=== PATIENT | female | born 1940 | race Caucasian/White ===

== ENCOUNTER → 2016-07-18 | Outpatient (CLI) | payer MEDICARE, BC ==
--- NOTE | 2016-07-18 12:51 | MM ---
Reason for exam: screening (asymptomatic). Last mammogram was performed 1 year and 1 month ago. History: Patient is postmenopausal. Family history of breast cancer in cousin and premenopausal breast cancer in cousin. Physical Findings: A clinical breast exam by your physician is recommended on an annual basis and results should be correlated with mammographic findings. MG Screening Mammo w CAD Bilateral CC and MLO view(s) were taken. Prior study comparison: June 22, 2015, bilateral MG screening mammo w CAD. May 12, 2014, bilateral MG screening mammo w CAD. The breast tissue is heterogeneously dense. This may lower the sensitivity of mammography. There is no discrete abnormality. ASSESSMENT: Negative, BI-RAD 1 RECOMMENDATION: Routine screening mammogram of both breasts in 1 year.
== END | disposition home or self-care (01) ==
LOC: RADMAMWWP 10:02
PROVIDERS: ATTEND Internal Medicine
DX: Z12.31 Encounter for screening mammogram for malignant neoplasm of breast (principal)

== ENCOUNTER → 2017-08-15 | Outpatient (CLI) | payer MEDICARE, BC ==
--- NOTE | 2017-08-16 11:41 | MM ---
Reason for exam: screening (asymptomatic). Last mammogram was performed 1 year and 1 month ago. History: Patient is postmenopausal. Family history of breast cancer in cousin and premenopausal breast cancer in cousin. Physical Findings: A clinical breast exam by your physician is recommended on an annual basis and results should be correlated with mammographic findings. MG Screening Mammo w CAD Bilateral CC and MLO view(s) were taken. Prior study comparison: July 18, 2016, bilateral MG screening mammo w CAD. June 22, 2015, bilateral MG screening mammo w CAD. The breast tissue is heterogeneously dense. This may lower the sensitivity of mammography. There is chronic nodularity bilaterally. There is no dominant lesion. No significant changes when compared with prior studies. ASSESSMENT: Benign, BI-RAD 2 RECOMMENDATION: Routine screening mammogram of both breasts in 1 year.
== END | disposition home or self-care (01) ==
LOC: RADMAMWWP 09:42
PROVIDERS: ATTEND Internal Medicine
DX: Z12.31 Encounter for screening mammogram for malignant neoplasm of breast (principal)
CPT/HCPCS: 77067

== ENCOUNTER → 2018-11-20 | Outpatient (CLI) | payer MEDICARE, OTHER ==
--- NOTE | 2018-11-21 09:49 | MM ---
Reason for exam: screening (asymptomatic). Last mammogram was performed 1 year and 3 months ago. History: Patient is postmenopausal. Family history of breast cancer in cousin and premenopausal breast cancer in cousin. Physical Findings: A clinical breast exam by your physician is recommended on an annual basis and results should be correlated with mammographic findings. MG Screening Mammo w CAD Bilateral CC and MLO view(s) were taken. Prior study comparison: August 15, 2017, bilateral MG screening mammo w CAD. July 18, 2016, bilateral MG screening mammo w CAD. The breast tissue is heterogeneously dense. This may lower the sensitivity of mammography. Stable benign calcifications. There is chronic nodularity bilaterally. There is no dominant lesion. No significant changes when compared with prior studies. ASSESSMENT: Benign, BI-RAD 2 RECOMMENDATION: Routine screening mammogram of both breasts in 1 year.
== END | disposition home or self-care (01) ==
LOC: RADMAMWWP 12:38
PROVIDERS: ATTEND Internal Medicine
DX: Z12.31 Encounter for screening mammogram for malignant neoplasm of breast (principal)
CPT/HCPCS: 77067

== ENCOUNTER → 2020-04-04 | Outpatient (CLI) | payer MEDICARE, OTHER ==
[2020-04-04 10:48] LABS: Basophils % (A) 0 %; Eosinophils # (A) 0.2 k/uL (0-0.7); Eosinophils % (A) 3 %; HCT 45.4 % (34.0-46.0); HGB 14.7 gm/dL (11.4-16.0); Lymphocytes # (A) 2.2 k/uL (1.0-4.8); Lymphocytes % (A) 29 %; MCH 31.7 pg (25.0-35.0); MCHC 32.4 g/dL (31.0-37.0); MCV 97.9 fL (80.0-100.0); Mean Platelet Volume 6.9; Monocytes # (A) 0.5 k/uL (0-1.0); Monocytes % (A) 7 %; Neutrophils # (A) 4.4 k/uL (1.3-7.7); Neutrophils % (A) 57 %; Platelet Count 330 k/uL (150-450); RBC 4.64 m/uL (3.80-5.40); RDW 12.6 % (11.5-15.5); WBC 7.6 k/uL (3.8-10.6)
[2020-04-04 10:57] LABS: Calcium 9.4 mg/dL (8.4-10.2); Potassium 4.9 mmol/L (3.5-5.1)
[2020-04-04 11:20] LABS: Appearance,Urine Clear (Clear); Bilirubin,Urine Negative (Negative); Blood,Urine Negative (Negative); Color,Urine Light Yellow; Glucose,Urine (UA) Negative (Negative); Ketones,Urine Negative (Negative); Leukocyte Esterase,Urine Negative (Negative); Nitrite,Urine Negative (Negative); Protein,Urine Negative (Negative); Specific Gravity,Urine 1.009 (1.001-1.035); Urobilinogen,Urine <2.0 mg/dL (<2.0)
[2020-04-04 11:55] LABS: INR 0.9 (<1.2); Prothrombin Time 9.6 sec (9.0-12.0)
== END | disposition home or self-care (01) ==
LOC: LABPAT 09:23
PROVIDERS: ATTEND Urology
DX: Z01.818 Encounter for other preprocedural examination (principal); Z79.899 Other long term (current) drug therapy; N39.3 Stress incontinence (female) (male); R58 Hemorrhage, not elsewhere classified; R31.29 Other microscopic hematuria
CPT/HCPCS: 36415; 80048; 81003; 85025; 85610; 86850; 86900; 86901; 87086; 93005

== ENCOUNTER 2020-04-11 07:59 | Day surgery (SDC) | payer MEDICARE, OTHER ==
--- NOTE | 2020-04-07 17:13 | HP ---
HISTORY AND PHYSICAL This is an 80-year-old female who presented with increasing pelvic pressure and bulge. She is uncomfortable with any physical activity including walking. She is not sexually active as she is a . She also experiences urinary leakage and has scheduled with Dr. Ratliff for bladder sling procedure. She denies postmenopausal bleeding. PAST SURGICAL HISTORY: Negative. CURRENT MEDICATIONS: Baby aspirin daily. Centrum Silver daily. Latanoprost 0.005% ophthalmic eyedrops one into each eye each evening. Levothyroxine 50 mcg daily. Vitamin D 2000 units daily. PAST MEDICAL HISTORY: Significant for hypothyroidism. FAMILY HISTORY: Unremarkable. ALLERGIES: None known. REPRODUCTIVE HISTORY: Significant for normal spontaneous vaginal delivery x2. SOCIAL HISTORY: Patient drinks 4 cups of coffee daily. She denies alcohol or drug use. She is retired and as mentioned, is a . PHYSICAL EXAM: Patient is 5 foot 5 inches, 152 pounds, blood pressure is 150/82, pulse 75, BMI 25, 96% O2 saturation. HEENT: Exam reveals no thyromegaly, no obvious cervical lymphadenopathy. Good dentition. CHEST: Clear to auscultation in all nuñez anteriorly and posteriorly. CARDIAC: Exam reveals regular rate and rhythm with no murmur, click, or rub. Breasts are bilaterally atrophic, no discharge, no deformities. No skin changes. No nipple deviation or retraction and no palpable lesions or masses. ABDOMEN: Soft and nontender, no rigidity or guarding. Normal bowel sounds. No hepatosplenomegaly. No obvious herniorrhaphy. On external genitalia exam, there is no discharge and no tenderness. There is a grade 4 cystocele present along with a grade 3 uterine prolapse. No obvious rectocele is appreciated. Adnexa are small, mobile, nontender and smooth. Uterus is small, mobile, and nontender, midline. Rectal exam reveals good sphincter tone, no hemorrhoids, no rectal masses, FIT negative stool. Psychiatric exam reveals patient to be alert and oriented x3 with appropriate affect. IMPRESSION: Uterine prolapse and cystocele, along with genuine urinary stress incontinence. PLAN: We will proceed with vaginal hysterectomy, anterior colporrhaphy, and sling procedure per Dr. Ratliff. She is declining option of pessary use. The ACOG pamphlet on pelvic organ prolapse was given and thoroughly explained. All questions answered, including the risks of surgery, aspiration, nerve damage, bladder, urethral or blood vessel damage. MMODL / IJN: [id number] /
[2020-04-08 08:30] VITALS: BMI 25.1
[~2020-04-11 07:59] MED LIST: DEXAMETHASONE SOD PHOSPHATE 4 MG/ML 1 ML VIAL IV ONE; HYDROmorphone 0.5 MG/0.5 ML SYRINGE IVP PRN; LIDOCAINE 1% (10MG/ML) FOR IV START INTRADERMA PRN; ONDANSETRON 4 MG/2 ML VIAL IVP ONE
[2020-04-11] MEDS: LACTATED RINGERS 1,000 ML IV SCH (08:42)
[2020-04-11] MEDS ORDERED: MIDAZOLAM 2 MG/2 ML VIAL IVP ONE (09:03)
[2020-04-11] MEDS ORDERED: NEOSTIGMINE 1 MG/ML 10 ML VIAL ONE (09:15)
[2020-04-11] MEDS ORDERED: HYDROmorphone (PF) 1 MG/ML ONE (09:15)
[2020-04-11] MEDS ORDERED: GLYCOPYRROLATE 0.2 MG/ML 2 ML VIAL ONE (09:15)
[2020-04-11] MEDS ORDERED: LIDOCAINE 1% INJ 10MG/ML (20 ML MDV) ONE (09:15)
[2020-04-11] MEDS ORDERED: PROPOFOL 10 MG/ML 20 ML VIAL IV ONE (09:15)
[2020-04-11] MEDS ORDERED: fentaNYL (PF) 50 MCG/ML 2 ML AMP ONE (09:15)
[2020-04-11] MEDS ORDERED: ROCURONIUM 10 MG/ML (10 ML VIAL) IV ONE (09:15)
[2020-04-11] MEDS ORDERED: SUCCINYLCHOLINE CHLORIDE 100 MG/5 ML SYR IV ONE (09:15)
[2020-04-11] MEDS ORDERED: VASOPRESSIN 20 UNIT/ML 1 ML VIAL SQ ONE (09:50)
[2020-04-11] MEDS ORDERED: BACITRACIN ZINC 500 UNIT/GM OINT 28.4 GM TUBE TOPICAL ONE ×3 (09:53→10:39)
[2020-04-11] MEDS ORDERED: LIDOCAINE 1%-EPI 1:100,000 20 ML VIAL SUBMUCOSAL ONE (09:54)
[2020-04-11] MEDS ORDERED: GENTAMICIN 80 MG in SODIUM CHLORIDE 0.9% 500 ML 500 ML IRRIGATION ONE ×4 (09:55)
--- NOTE | 2020-04-11 10:50 | P.OP ---
Date of Procedure: 04/11/20 Preoperative Diagnosis: Stress urinary incontinence Postoperative Diagnosis: Same Procedure(s) Performed: Trans-obturator sling, cystoscopy Implants: Obturator mesh sling Anesthesia: ZEYADA Surgeon: Leobardo Ratliff Estimated Blood Loss (ml): 5 Pathology: none sent Condition: stable Disposition: PACU Indications for Procedure: This is an 80-year-old female with history of pelvic organ prolapse, She has also evidence of stress urinary incontinence. She is symptomatic from her prolapse, stress urinary incontinence. Discussed with her the option of doing a prolapse repair and doing a sling at the same time. Discussed with her the risk of the procedure which includes but not limited to bleeding, infection, injury to the bladder, injury to the urethra. Also discussed with her that we will be using mesh for the sling, discussed the risk of mesh erosion through the urethra, the bladder, the vagina. Also discussed with her that she might still have some component of incontinence after sling placement. She understood all the risk and agreed to proceed Description of Procedure: The patient was taken to the operating room and placed in the dorsal lithotomy position. The anterior dissection was performed by Dr Samano. The scalpel was used to make bilateral groin incisions at the level of the clitoris. Subcutaneous tissues were spread with a hemostat. Each of the helical needles were passed through the respective groin incision, and turned such that the needle tip wrapped around the pubis. The needle tips were guided digitally into the vaginal incision. The Obtryx graft, which had been previously soaked in antibiotic solution, was secured to the needle tips in the standard fashion. The needles were then withdrawn, and the position of the graft was adjusted such that it overlie the mid urethra, as desired. With a hemostat placed between the graft and the urethra to prevent tension of the graft over the urethra, the plastic sheath was removed from the ends of the graft. The ends of the graft w ere cut beneath the skin incisions, and these incisions were closed using 4-0 Vicryl suture in a subcuticular fashion. A Cystoscopy was performed. The 30 lens was used to introduce the 17-Stateless Storz cystoscopic sheath through the urethra and into the bladder under direct vision. The urethra and bladder were unremarkable. There was no evidence of perforation.. No tumors or foreign bodies were seen. The cystoscope was removed, and the Rosado catheter was replaced into the bladder. At this time Dr Samano continued with her portion of surgery.
[2020-04-11] MEDS ORDERED: ONDANSETRON 4 MG/2 ML VIAL IVP PRN ×2 (10:58→18:54)
[2020-04-11] MEDS ORDERED: IBUPROFEN 600 MG TAB PO PRN (10:58)
[2020-04-11] MEDS ORDERED: KETOROLAC 15 MG/ML 1 ML VIAL IVP PRN (10:58)
[2020-04-11] MEDS ORDERED: SIMETHICONE 80 MG CHEWABLE PO PRN (10:58)
--- NOTE | 2020-04-11 10:58 | P.OP ---
Date of Procedure: 04/11/20 Preoperative Diagnosis: Symptomatic uterine prolapse, grade 4 cystocele, genuine stress urinary incontinence. Postoperative Diagnosis: Same, atrophic ovaries high in the pelvis. Procedure(s) Performed: Vaginal hysterectomy, anterior colporrhaphy. Anesthesia: ZEYADA Surgeon: Ro Samano Fishing Tackle Repairer #1: Sally Mondragon Estimated Blood Loss (ml): 25 IV fluids (ml): 500 Urine output (ml): 200 Pathology: other (Cervix and uterus) Condition: stable Disposition: PACU Operative Findings: Rectocele, asymptomatic. Normal-appearing ovaries bilaterally. Description of Procedure: Patient is brought to the operating room after a spinal with Duramorph is placed. She is placed in the dorsal lithotomy position. The cervix, vagina, perineal body and lower abdominal landa are all prepped and draped in the usual sterile fashion. Antibiotics are given. The appropriate timeout is performed to assure proper patient and procedural identification. Weighted speculum was placed into the vagina. Bladder is drained with a red Jackson catheter, approximately 200 mL of clear yellow urine. Cervix is grasped with a double- tooth tenaculum. Dilute Pitressin solution is used to inject the mucosa circumferentially around the cervix. A [place] blade scalpel is used to incise the tissue circumferentially, with a V positioning at 6:00. Sponge rolled finger is then used to sweep the mucosa from the underlying fascial plane. Peritoneum is entered at 6:00 with a Metzenbaum scissor, suture tied with 2-0 Vicryl and held with a hemostat. The large billed speculum is then placed into the peritoneal cavity. Care is taken to keep the mucosa swept well from the bladder and ureters. Aicha clamps are used across the uterosacral cardinal ligament complex these bilaterally. These are clamped cut and suture ligated, held laterally with hemostats. Uterine vasculature is next identified, clamped cut and suture ligated. 2 additional pedicles are taken superior to the vessels. Anterior per itoneum is entered at 12:00 and the uterus is "walked out" posteriorly. Aicha clamps are used across the final pedicles, the cervix and uterus are removed and sent to pathology. The pedicles are tied with 0 Vicryl in a Gallo stitch, flashed, and retied for excellent hemostasis. Sponge stick is then used and the ovaries are inspected, atrophic, high in the pelvis and left in situ per the patient's wishes. The speculum is then changed to the shallow billed speculum. The 2-0 Vicryl stitch is brought around circumferentially to close the peritoneal cavity. The uterosacral cardinal ligaments are brought across to incorporate opposite ligament as well as vaginal mucosa. 2 additional [id number] sutures are placed inferior to this to close the vaginal cuff. The anterior portion is held with Allis clamps and the anterior repair is started. The mucosa is injected in the midline with the same dilute Pitressin solution. Metzenbaum scissors are used to undermine the mucosa and the incision is carried superiorly to approximate 1.5 cm inferior to the urethra. The edges are held with Allis clamps and the mucosa is dissected from underneath the fascial plane. Dr. Britt now joins the case and performed his transurethral sling, please see separate dictation for details. After the sling is completed and the cystocele documents no damage, 2-0 Vicryl sutures are used in an interrupted portion to bring the fascial edges together thereby completely reducing the cystocele. Metzenbaum scissors are used to trim the redundant mucosa. 2-0 Vicryl is used to close the mucosa now in a running locking stitch. Approximation is excellent. The vagina is packed with a 1 inch iodophor gauze with basic tracing. Rosado is noted to be draining clear urine. All sponge needle and enhancement counts are correct at the end of the procedure. Patient is brought back to the recovery room in excellent condition with a blood pressure 120/69, pulse 61, 98% O2 saturation.
[2020-04-11] MEDS ORDERED: LACTATED RINGERS 1,000 ML IV ONE (11:17)
[2020-04-11] MEDS ORDERED: NALOXONE 0.4 MG/ML 1 ML VIAL IV PRN (12:02)
[2020-04-11] MEDS ORDERED: MORPHINE SULFATE 2 MG/ML SYRINGE IVP PRN ×2 (12:02→19:02)
--- NOTE | 2020-04-11 12:04 | P.ANPRN ---
Procedure Note - Anesthesia - Epidural/Spinal Spinal Time Out Performed: Yes Date of Procedure: 04/11/20 Procedure Start Time: :02 Procedure Stop Time: :17 Location of Patient: PreOp Indication: Acute Post-Operative Pain Sedation Type: Sedate with meaningful contact maintained Preparation: Sterile Prep Position: Sitting Needle Guage: 25 Injectate: Other (Duramorph 200mcg) Blood Aspirated: No Pain Paresthesia on Injection Noted: No Events: Uneventful and Well Tolerated
[2020-04-11] MEDS: diphenhydrAMINE 50 MG/ML 1 ML VIAL IVP PRN (19:49)
[2020-04-12] MEDS: LACTATED RINGERS 1,000 ML IV SCH (02:03)
[2020-04-12] MEDS: diphenhydrAMINE 50 MG/ML 1 ML VIAL IVP PRN (02:17)
[2020-04-12] MEDS ORDERED: LEVOTHYROXINE 50 MCG TAB PO SCH (06:30)
--- NOTE | 2020-04-12 06:35 | P.PN ---
Progress Note - Text Progress Note Date: 04/12/20 Postoperative day 1 with intrathecal Duramorph for postoperative analgesia.The patient is doing well, there is mild generalized skin itching. There are no other anesthesia related complications. The patient denies any paresthesia or weakness in the lower extremities. Further management as per the patient primary team.
--- NOTE | 2020-04-12 07:41 | P.DS ---
Providers Date of admission: 04/11/20 Expected date of discharge: 04/12/20 Attending physician: Ro Samano [facility] Course: This is an 80-year-old female who presented with increasingly symptomatic va ginal bulge, grade 4 cystocele, genuine stress urinary incontinence, and uterine prolapse. After thorough discussion, decision was made to proceed with surgical correction. Please see dictated history and physical for details. Yesterday under my care she underwent a vaginal hysterectomy, cystocele repair, and had a sling performed per Dr. Red. She did well intraoperatively, the ovaries appeared normal and were left in situ. Vagina was packed with iodoform gauze, Rosado catheter placed. Please see dictated operative note for details. This morning the Rosaod catheter has been removed, and the vaginal packing has been removed as well. Patient is doing well, passing flatus, having no pain. No vaginal drainage. Her diet has been advanced. She will shower. She will use Motrin, Advil or Aleve as needed for pain. My plan is for discharge home later today pending successful post void residuals. I have reminded her no intercourse, tampons or douching. No heavy lifting greater than a gallon of milk. No driving for 2 weeks. She will call the office with any foul smelling or bloody vaginal discharge, with any pain not alleviated by [id number] products, with any difficulties urinating, or indeed with any problems questions or concerns. She'll follow-up with me in the office in 2 weeks. Assessment: Doing well postoperative day #1 Patient Condition at Discharge: Good Plan - Discharge Summary New Discharge Prescriptions: No Action Cholecalciferol [Vitamin D3 (25 Mcg = 1000 Iu)] 2,000 unit PO DAILY Aspirin [Adult Low Dose Aspirin EC] 81 mg PO DAILY Levothyroxine Sodium [Synthroid] 50 mcg PO DAILY Latanoprost/Pf [Latanoprost 0.005% Eye Drop] 1 drop RIGHT EYE HS Multivit-Min/FA/Lycopen/Lutein [Centrum Silver Tablet] 1 each PO DAILY Discharge Medication List Aspirin [Adult Low Dose Aspirin EC] 81 mg PO DAILY 04/08/20 [History] Cholecalciferol [Vitamin D3 (25 Mcg = 1000 Iu)] 2,000 unit PO DAILY 04/08/20 [History] Latanoprost/Pf [Latanoprost 0.005% Eye Drop] 1 drop RIGHT EYE HS 04/08/20 [History] Levothyroxine Sodium [Synthroid] 50 mcg PO DAILY 04/08/20 [History] Multivit-Min/FA/Lycopen/Lutein [Centrum Silver Tablet] 1 each PO DAILY 04/08/20 [History] Follow up Appointment(s)/Referral(s): Ro Samano MD [STAFF PHYSICIAN] - 2 Weeks Discharge Disposition: HOME SELF-CARE
[2020-04-12 08:48] VITALS: BP 108/62; PULSE 80; TEMP 98.7
[2020-04-12] MEDS ORDERED: ACETAMINOPHEN TAB 325 MG TAB PO PRN (10:59)
[2020-04-12 11:25] VITALS: RESP 16
--- NOTE | 2020-04-12 21:28 | P.PN ---
Progress Note - Text Progress Note Date: 04/12/20 POD #1 S/P transobturator sling placement No acute overnight event, pain controlled, tolerating a diet. Rosado removed and has been voided 400 mL with PVR 171 -ok for discharge from urology standpoint, can obtain an additional PVR, if less than 200 mL she is ok for discharge from urology standpoint
== END 2020-04-12 12:13 | disposition home or self-care (01) ==
LOC: OR 07:59 → 6PED 10:39 → OR 04-12 12:13
PROVIDERS: ATTEND Obstetrics & Gynecology
DX: N81.4 Uterovaginal prolapse, unspecified (principal); D25.1 Intramural leiomyoma of uterus; N39.3 Stress incontinence (female) (male); N83.312 Acquired atrophy of left ovary; N83.311 Acquired atrophy of right ovary; E78.5 Hyperlipidemia, unspecified; E03.9 Hypothyroidism, unspecified; K21.9 Gastro-esophageal reflux disease without esophagitis; Z79.890 Hormone replacement therapy; Z79.82 Long term (current) use of aspirin; Z79.899 Other long term (current) drug therapy
CPT/HCPCS: 88307; 58260; 57240; 57288; C1771; J2250; J1200 ×2; J1580; J1100; J2710; J0690; J2405; J2001; J3010; J1170 ×2; J0330; J2704; 86850; 86900; 86901

== ENCOUNTER 2020-11-05 20:07 | Emergency (ER) | payer MEDICARE, OTHER ==
[2020-11-05 20:14] VITALS: RESP 18
--- NOTE | 2020-11-05 20:24 | ED ---
General Adult HPI - General Chief complaint: Abdominal Pain Stated complaint: Abd Pain Time Seen by Provider: 11/05/20 20:21 Source: patient Mode of arrival: wheelchair Limitations: no limitations - History of Present Illness Initial comments: Patient presents to the ED with her niece for evaluation. Patient states that she has had intermittent epigastric pain for the past couple of days, which has become constant and more severe since this morning. Patient also admits to feeling somewhat nauseated. Patient denies trauma or injury, fever or chills, headache, chest pain or pressure, neck/arm/jaw/back pain, pleuritic pain, dyspnea, cough or cold symptoms, palpitations, dizziness, vomiting, diarrhea or constipation, bloody or melanotic stool, dysuria/hematuria/urinary frequency/urinary symptoms, leg or calf swelling or pain, or any other symptoms or complaints. Patient states that her pain is currently 9/10 in severity. - Related Data Home Medications Medication Instructions Recorded Confirmed Cholecalciferol [Vitamin D3 (25 1,000 unit PO DAILY 04/08/20 11/05/20 Mcg = 1000 Iu)] Latanoprost/Pf [Latanoprost 0.005% 1 drop RIGHT EYE HS 04/08/20 11/05/20 Eye Drop] Levothyroxine Sodium [Synthroid] 50 mcg PO DAILY 04/08/20 11/05/20 Multivit-Min/FA/Lycopen/Lutein 1 tab PO DAILY 04/08/20 11/05/20 [Centrum Silver Tablet] Allergies Allergy/AdvReac Type Severity Reaction Status Date / Time No Known Allergies Allergy Verified 11/05/20 20:58 Review of Systems ROS Statement: Those systems with pertinent positive or pertinent negative responses have been documented in the HPI. ROS Other: All systems not noted in ROS Statement are negative. Past Medical History Past Medical History: Eye Disorder, Thyroid Disorder History of Any Multi-Drug Resistant Organisms: None Reported Past Surgical History: Bladder Surgery, Hysterectomy Past Psychological History: No Psychological Hx Reported Smoking Status: Never smoker Past Alcohol Use History: None Reported Past Drug Use History: None Reported General Exam Limitations: no limitations General appearance: alert, in no apparent distress Head exam: Present: atraumatic, normocephalic Eye exam: Present: normal appearance, EOMI ENT exam: Present: mucous membranes moist Neck exam: Present: other (Trachea is in midline) Respiratory exam: Present: normal lung sounds bilaterally. Absent: respiratory distress, wheezes, rales, rhonchi, stridor Cardiovascular Exam: Present: regular rate, normal rhythm, normal heart sounds, other (Normal radial pulses bilaterally) GI/Abdominal exam: Present: soft, normal bowel sounds, other (Moderate epigastric and right upper quadrant abdominal tenderness). Absent: distended, guarding, rebound Extremities exam: Absent: tenderness, pedal edema, calf tenderness Back exam: Absent: CVA tenderness (R), CVA tenderness (L) Neurological exam: Present: alert, oriented X3. Absent: motor sensory deficit Psychiatric exam: Present: normal affect, normal mood Skin exam: Present: warm, dry, intact, normal color Course Vital Signs 11/05/20 11/05/20 20:10 21:51 Temperature 98 F Pulse Rate 80 78 Respiratory 18 18 Rate Blood Pressure 158/78 143/70 O2 Sat by Pulse 95 98 Oximetry - Reevaluation(s) Reevaluation #1: 11/05/20 21:59 Case, H&P and test results were discussed with Dr. Calloway (general surgery). Patient states that the patient should be transferred to another facility given we do not have any GI coverage this weekend, as she will likely need an ERCP. She has no further recommendations at this time. 11/05/20 22:08 Patient states her pain/symptoms have improved with ED management, but she continues to have pain. Patient's abdomen remains soft and without any surgical signs on examination. Patient and niece are aware the patient's test results and my discussion with Dr. Calloway as above. Patient agrees with ambulance transfer to [facility] at this time. 11/05/20 22:11 Case, H&P, test results, ED management and my discussion with Dr. Calloway as above were discussed with Dr. Cho (ED physician at [facility]). He accepts ambulance transfer to the [facility] ED he has no further recommendations at this time. EKG Findings - EKG Comments: EKG Findings:: Normal sinus rhythm, ventricular rate of 75 bpm, normal [place] and QRS intervals, normal QT interval, normal axis, no ST or T-wave abnormality Medical Decision Making - Medical Decision Making Given the patient's lab and gallbladder ultrasound findings, I suspect that the patient's symptoms are likely secondary to a distal obstructing gallstone. Patient is afebrile and without leukocytosis. Patient has no evidence of gallbladder wall thickening or pericholecystic fluid on ultrasound. Patient has been treated with IV fluids, IV pain medication and IV Zosyn in the ED. There is no GI coverage in our hospital this weekend, so patient will be transferred to the [facility] ED for admission and GI consultation. - Lab Data Result diagrams: 11/05/20 20:40 11/05/20 20:40 Lab Results 11/05/20 11/05/20 11/05/20 Range/Units 20:40 20:40 20:40 WBC 10.4 (3.8-10.6) k/uL RBC 4.43 (3.80-5.40) m/uL Hgb 14.1 (11.4-16.0) gm/dL Hct 42.3 (34.0-46.0) % MCV 95.7 (80.0-100.0) fL MCH 31.8 (25.0-35.0) pg MCHC 33.2 (31.0-37.0) g/dL RDW 12.8 (11.5-15.5) % Plt Count 254 (150-450) k/uL MPV 7.3 Neutrophils % 72 % Lymphocytes % 13 % Monocytes % 9 % Eosinophils % 2 % Basophils % 0 % Neutrophils # 7.5 (1.3-7.7) k/uL Lymphocytes # 1.4 (1.0-4.8) k/uL Monocytes # 0.9 (0-1.0) k/uL Eosinophils # 0.2 (0-0.7) k/uL Basophils # 0.1 (0-0.2) k/uL PT (9.0-12.0) sec INR (<1.2) APTT (22.0-30.0) sec Sodium 137 (137-145) mmol/L Potassium 4.0 (3.5-5.1) mmol/L Chloride 104 (98-107) mmol/L Carbon Dioxide 25 (22-30) mmol/L Anion Gap 8 mmol/L BUN 21 H (7-17) mg/dL Creatinine 0.78 (0.52-1.04) mg/dL Est GFR (CKD-EPI)AfAm 83 (>60 ml/min/1.73 sqM) Est GFR (CKD-EPI)NonAf 72 (>60 ml/min/1.73 sqM) Glucose 113 H (74-99) mg/dL Plasma Lactic Acid Juaquin 0.9 (0.7-2.0) mmol/L Calcium 9.3 (8.4-10.2) mg/dL Total Bilirubin 4.2 H (0.2-1.3) mg/dL AST 994 H (14-36) U/L ALT 918 H (4-34) U/L Alkaline Phosphatase 219 H (38-126) U/L Troponin I (0.000-0.034) ng/mL Total Protein 7.0 (6.3-8.2) g/dL Albumin 3.8 (3.5-5.0) g/dL Amylase 3328 H* (30-110) U/L Lipase >39776 H (23-300) U/L 11/05/20 11/05/20 Range/Units 20:40 20:40 WBC (3.8-10.6) k/uL RBC (3.80-5.40) m/uL Hgb (11.4-16.0) gm/dL Hct (34.0-46.0) % MCV (80.0-100.0) fL MCH (25.0-35.0) pg MCHC (31.0-37.0) g/dL RDW (11.5-15.5) % Plt Count (150-450) k/uL MPV Neutrophils % % Lymphocytes % % Monocytes % % Eosinophils % % Basophils % % Neutrophils # (1.3-7.7) k/uL Lymphocytes # (1.0-4.8) k/uL Monocytes # (0-1.0) k/uL Eosinophils # (0-0.7) k/uL Basophils # (0-0.2) k/uL PT 10.7 (9.0-12.0) sec INR 1.0 (<1.2) APTT 22.1 (22.0-30.0) sec Sodium (137-145) mmol/L Potassium (3.5-5.1) mmol/L Chloride (98-107) mmol/L Carbon Dioxide (22-30) mmol/L Anion Gap mmol/L BUN (7-17) mg/dL Creatinine (0.52-1.04) mg/dL Est GFR (CKD-EPI)AfAm (>60 ml/min/1.73 sqM) Est GFR (CKD-EPI)NonAf (>60 ml/min/1.73 sqM) Glucose (74-99) mg/dL Plasma Lactic Acid Juaquin (0.7-2.0) mmol/L Calcium (8.4-10.2) mg/dL Total Bilirubin (0.2-1.3) mg/dL AST (14-36) U/L ALT (4-34) U/L Alkaline Phosphatase (38-126) U/L Troponin I <0.012 (0.000-0.034) ng/mL Total Protein (6.3-8.2) g/dL Albumin (3.5-5.0) g/dL Amylase (30-110) U/L Lipase (23-300) U/L - Radiology Data Radiology results: report reviewed (Gallbladder ultrasound: Numerous gallstones, there is some tenderness over the gallbladder, large common bile duct consistent with gallbladder dysfunction) Disposition Clinical Impression: Abdominal pain, Cholelithiasis, Pancreatitis, Transaminitis Narrative: Suspected choledocholithiasis Disposition: OTHER INSTITUTION NOT DEFINED Condition: Stable Is patient prescribed a controlled substance at d/c from ED?: No Referrals: Katiuska Parker MD [Primary Care Provider] - 1-2 days Time of Disposition: 22:17 - Out of Hospital Transfer - Req. Specs Out of Hospital Transfer - Requested Specifics: Other Emergency Center ([facility])
[2020-11-05] MEDS ORDERED: ONDANSETRON 4 MG/2 ML VIAL IVP STA (20:29)
[2020-11-05] MEDS ORDERED: SODIUM CHLORIDE 0.9% 500 ML 500 ML IV STA (20:29)
[2020-11-05] MEDS ORDERED: MORPHINE SULFATE 4 MG/ML SYRINGE IV STA (20:29)
[2020-11-05 21:10] LABS: Basophils # (A) 0.1 k/uL (0-0.2); Basophils % (A) 0 %; Eosinophils # (A) 0.2 k/uL (0-0.7); Eosinophils % (A) 2 %; HCT 42.3 % (34.0-46.0); HGB 14.1 gm/dL (11.4-16.0); Lymphocytes # (A) 1.4 k/uL (1.0-4.8); Lymphocytes % (A) 13 %; MCH 31.8 pg (25.0-35.0); MCHC 33.2 g/dL (31.0-37.0); MCV 95.7 fL (80.0-100.0); Mean Platelet Volume 7.3; Monocytes # (A) 0.9 k/uL (0-1.0); Monocytes % (A) 9 %; Neutrophils # (A) 7.5 k/uL (1.3-7.7); Neutrophils % (A) 72 %; Platelet Count 254 k/uL (150-450); RBC 4.43 m/uL (3.80-5.40); RDW 12.8 % (11.5-15.5); WBC 10.4 k/uL (3.8-10.6)
[2020-11-05 21:16] LABS: African American GFR (CKD) 83 (>60 ml/min/1.73 sqM); Albumin 3.8 g/dL (3.5-5.0); Alkaline Phosphatase 219 U/L (38-126); Anion Gap 8 mmol/L; Blood Urea Nitrogen 21 mg/dL (7-17); Calcium 9.3 mg/dL (8.4-10.2); Carbon Dioxide 25 mmol/L (22-30); Chloride 104 mmol/L (98-107); Glucose 113 mg/dL (74-99); Non-African American GFR(CKD) 72 (>60 ml/min/1.73 sqM); Sodium 137 mmol/L (137-145); Total Bilirubin 4.2 mg/dL (0.2-1.3)
[2020-11-05 21:21] LABS: Partial Thromboplastin Time 22.1 sec (22.0-30.0); Prothrombin Time 10.7 sec (9.0-12.0)
--- NOTE | 2020-11-05 21:29 | US ---
EXAMINATION TYPE: US gallbladder DATE OF EXAM: 11/05/2020 COMPARISON: NONE CLINICAL HISTORY: Epigastric abdominal pain. Epigastric pain EXAM MEASUREMENTS: Liver Length: 13.4 cm Gallbladder Wall: 0.3 cm CBD: 0.8 cm Right Kidney: 10.4 x 4.4 x 4.0 cm Pancreas: 4mm pancreatic duct visualized Liver: Visualized portions appeared wnl Gallbladder: Multiple, mobile gallstones, wall thickness upper limits of normal Evidence for sonographic Morales's sign: Yes CBD: wnl Right Kidney: Cyst upper pole= 0.8 cm IMPRESSION: Numerous gallstones. There is some tenderness over the gallbladder. Large common bile bernadette t consistent with gallbladder dysfunction.
[2020-11-05 21:49] LABS: AST 994 U/L (14-36)
[2020-11-05 21:50] LABS: ALT 918 U/L (4-34)
[2020-11-05 21:51] LABS: Amylase 3328 U/L (30-110)
[2020-11-05] MEDS ORDERED: PIPERACILLIN-TAZOBACTAM 3.375 GM in SODIUM CHLORIDE 0.9% 100 ML IVPB STA (21:59)
[2020-11-05 22:07] LABS: Lipase >20000 U/L (23-300)
[2020-11-05 22:09] LABS: Appearance,Urine Cloudy (Clear); Bacteria,Urine Rare /hpf; Bilirubin,Urine 2+ (Negative); Blood,Urine Moderate (Negative); Color,Urine Yellow; Glucose,Urine (UA) Negative (Negative); Ketones,Urine 1+ (Negative); Leukocyte Esterase,Urine Large (Negative); Mucus,Urine Rare /hpf; Nitrite,Urine Negative (Negative); PH, Urine 5.5 (5.0-8.0); Protein,Urine Trace (Negative); RBC,Urine 9 /hpf (0-5); Specific Gravity,Urine 1.017 (1.001-1.035); Squamous Epithelial Cell,Urine 4 /hpf (0-4); Urobilinogen,Urine <2.0 mg/dL (<2.0); WBC,Urine 54 /hpf (0-5)
[2020-11-05] MEDS ORDERED: HYDROmorphone 1 MG/ML 1 ML SYRINGE IVP STA (22:11)
[2020-11-05 23:02] VITALS: BP 142/72; PULSE 76; TEMP 98
== END 2020-11-05 23:01 | disposition other institution (70) ==
LOC: EC 20:07
DX: K80.20 Calculus of gallbladder without cholecystitis without obstruction (principal); K85.90 Acute pancreatitis without necrosis or infection, unspecified; R74.01 Elevation of levels of liver transaminase levels
CPT/HCPCS: 36415; 93005; 80053; 82150; 83605; 83690; 84484; 85025; 85610; 85730; 81001; 87086; 76705; 99285; 96374; 96375 ×2; 96361; J2543; J2270; J2405; J1170

== ENCOUNTER → 2020-11-15 | Outpatient (CLI) | payer MEDICARE, OTHER ==
--- NOTE | 2020-11-15 15:02 | US ---
EXAMINATION TYPE: US venous doppler duplex LE LT DATE OF EXAM: 11/15/2020 2:39 PM COMPARISON: NONE CLINICAL HISTORY: R79.1 ELEV D DIMER. Patient complains of bilateral feet swelling following GB surge ry last week. SIDE PERFORMED: Left TECHNIQUE: The lower extremity deep venous system is examined utilizing real time linear array sonog lucas with graded compression, doppler sonography and color-flow sonography. VESSELS IMAGED: Common Femoral Vein Deep Femoral Vein Greater Saphenous Vein * Femoral Vein Popliteal Vein (* superficial vessels) Left Leg: Negative for DVT IMPRESSION: No definite sonographic evidence for deep vein thrombosis of the left lower extremity.
== END | disposition home or self-care (01) ==
LOC: RADUSWWP 14:09
PROVIDERS: ATTEND Family Medicine
DX: R79.1 Abnormal coagulation profile (principal); R22.43 Localized swelling, mass and lump, lower limb, bilateral

== ENCOUNTER → 2020-11-22 | Outpatient (CLI) | payer MEDICARE, OTHER ==
[2020-11-22 16:03] LABS: Albumin 4.2 g/dL (3.80-4.90); Albumin/Globulin Ratio 1.31 (1.60-3.17); Bilirubin, Conjugated 0.3 mg/dL (0.20-0.40); Bilirubin,Unconjugated 0.4 mg/dL; Globulin 3.2 g/dL (1.6-3.3); Total Bilirubin 0.7 mg/dL (0.2-1.2); Total Protein 7.4 g/dL (6.2-8.2)
== END | disposition home or self-care (01) ==
LOC: LABWHC1 08:12
PROVIDERS: ATTEND Surgery
DX: R10.84 Generalized abdominal pain (principal)
CPT/HCPCS: 36415; 80076; 82150; 83690

== ENCOUNTER → 2021-06-27 | Outpatient (CLI) | payer MEDICARE, OTHER ==
[2021-06-27 15:40] LABS: Total Bilirubin 0.5 mg/dL (0.30-1.20)
== END | disposition home or self-care (01) ==
LOC: LABWHC1 07:42
PROVIDERS: ATTEND Internal Medicine Gastroenterology
DX: R74.01 Elevation of levels of liver transaminase levels (principal)
CPT/HCPCS: 36415; 82150; 82247; 83690; 84075; 84450; 84460

== ENCOUNTER → 2021-09-15 | Outpatient (CLI) | payer MEDICARE, OTHER ==
--- NOTE | 2021-09-15 16:52 | BD ---
EXAMINATION TYPE: Axial Bone Density DATE OF EXAM: 09/15/2021 COMPARISON: NONE CLINICAL HISTORY: 81 year old Female. ICD-10 CODE: M85.8 Osteopenia Height: 64.5 Weight: 140.4 FRAX RISK QUESTIONS: Alcohol (3 or more units per day): no Family History (Parent hip fracture): no Glucocorticoids (More than 3mos): no (Ex: prednisone, prednisolone, methylprednisolone, dexamethasone, and hydrocortisone). History of Fracture in Adulthood: no Secondary Osteoporosis: 1. Type 1 Diabetes: no 2. Hyperthyroidism: no 3. Menopause before 45: no 4. Malnutrition: no 5. Chronic liver disease: no Rheumatoid Arthritis: no Current Tobacco Use: no RISK FACTORS HISTORY OF: Surgery to Spine/Hip(right/left)/Wrist (right/left): no Family History of Osteoporosis: no Active: yes Diet low in dairy products/other sources of calcium: no Postmenopausal woman: yes Lost more than 2 inches in height since high school: no MEDICATIONS: Thyroid Medications: levothyroxine How Lon years Additional History: EXAM MEASUREMENTS: Bone mineral densitometry was performed using the [employer] System. Bone mineral density as measured about the Lumbar spine is: ----- L1-L4(G/cm2): 1.394 T Score Values are as follows: ----- L1: 0.6 ----- L2: 0.5 ----- L3: 3.3 ----- L4: 2.6 ----- L1-L4: 1.8 Bone mineral density has: increased 15.5 % since study of: 06.22.2015 Bone mineral density about the R hip (g/cm2): 0.850 Bone mineral density about the L hip (g/cm2): 0.877 T Score values are as follows: -----R Neck: -1.4 -----L Neck: -1.2 -----R Total: -1.0 -----L Total: -1.4 Bone mineral density has: decreased -7.2 % since study of: 06.22.2015 FRAX%s: The graph provided illustrates a 12.6% chance for a major osteoporotic fx and a 3.2% chance f or the hips probability for fx in 10 years time. IMPRESSION: Osteopenia (T Score between -2.5 and -1). There is slightly increased risk of fracture and the patient may be considered for treatment. Re-Screen 2-5 years. NOTE: T-SCORE=SD OF THE YOUNG ADULT MEAN.
== END | disposition home or self-care (01) ==
LOC: RADBDWWP 08:32
PROVIDERS: ATTEND Internal Medicine
DX: M85.89 Other specified disorders of bone density and structure, multiple sites (principal)
CPT/HCPCS: 77080

== ENCOUNTER → 2022-09-05 | Outpatient (CLI) | payer MEDICARE, OTHER ==
[2022-09-05 15:25] LABS: Basophils # (A) 0.07 X 10*3/uL (0.00-0.10); Basophils % (A) 0.9 %; Eosinophils # (A) 0.55 X 10*3/uL (0.04-0.35); HCT 43.2 % (37.2-46.3); HGB 13.5 g/dL (12.0-15.0); Immature Grans, Automated 0.1 %; Lymphocytes # (A) 2.05 X 10*3/uL (0.90-5.00); Lymphocytes % (A) 26.2 %; MCHC 31.3 g/dL (32.0-37.0); MCV 99.3 fL (80.0-97.0); Mean Platelet Volume 10.2 fL (9.5-12.2); Monocytes % (A) 8.9 %; NRBC Per 100 WBC 0 /100 WBCS (0.0-0.0); Neutrophils # (A) 4.45 X 10*3/uL (1.80-7.70); Neutrophils % (A) 56.9 %; Platelet Count 285 X 10*3/uL (140-440); RBC 4.35 X 10*6/uL (4.10-5.20); RDW 13.4 % (11.5-14.5); WBC 7.83 X 10*3/uL (4.50-10.00)
[2022-09-05 16:10] LABS: African American GFR (CKD) 67.5 (60.0-200.0); Albumin/Globulin Ratio 1.37 (1.60-3.17); Anion Gap 10.4 mmol/L (10.00-18.00); BUN/Creat Ratio 18.88 Ratio (12.00-20.00); Blood Urea Nitrogen 17.2 mg/dL (9.0-27.0); Calcium 9.4 mg/dL (8.7-10.3); Globulin 2.9 g/dL (1.6-3.3); Non-African American GFR(CKD) 58.3 (60.0-200.0); Potassium 4.8 mmol/L (3.5-5.5); Total Bilirubin 0.5 mg/dL (0.30-1.20); Total Protein 6.9 g/dL (6.2-8.2)
== END | disposition home or self-care (01) ==
LOC: LABWHC1 07:39
PROVIDERS: ATTEND Internal Medicine
DX: Z11.59 Encounter for screening for other viral diseases (principal); E78.5 Hyperlipidemia, unspecified; M85.80 Other specified disorders of bone density and structure, unspecified site; K86.2 Cyst of pancreas; E03.9 Hypothyroidism, unspecified
CPT/HCPCS: 36415; 80053; 82306; 83690; 85025; 86803

== ENCOUNTER → 2023-03-05 | Outpatient (CLI) | payer MEDICARE, OTHER ==
[2023-03-05 15:25] LABS: Basophils # (A) 0.05 X 10*3/uL (0.00-0.10); Basophils % (A) 0.5 %; Eosinophils # (A) 0.62 X 10*3/uL (0.04-0.35); Eosinophils % (A) 6.8 %; HCT 46.8 % (37.2-46.3); HGB 14.9 d/dL (12.0-15.0); Lymphocytes # (A) 2.08 X 10*3/uL (0.90-5.00); Lymphocytes % (A) 22.8 %; MCH 31.7 pg (27.0-32.0); MCHC 31.8 d/dL (32.0-37.0); MCV 99.6 FL (80.0-97.0); Mean Platelet Volume 10.1 FL (9.5-12.2); Monocytes # (A) 0.73 X 10*3/uL (0.20-1.00); NRBC Per 100 WBC 0 X 10*3/uL (0.00-0.01); Neutrophils # (A) 5.62 X 10*3/uL (1.80-7.70); Neutrophils % (A) 61.7 %; Platelet Count 322 X 10*3/uL (140-440); WBC 9.12 X 10*3/uL (4.50-10.00)
[2023-03-05 15:42] LABS: ALT 16 U/L (8-44); AST 25 U/L (13-35); Albumin 4.3 d/dL (3.8-4.9); Albumin/Globulin Ratio 1.43 Ratio (1.60-3.17); Alkaline Phosphatase 91 U/L (41-126); Blood Urea Nitrogen 20.4 mg/dL (9.0-27.0); Calcium 9.8 mg/dL (8.7-10.3); Carbon Dioxide 26.2 mmol/L (21.6-31.8); Chloride 102 mmol/L (96-109); Chol/HDL Ratio 3.41 Ratio; Glucose 104 mg/dL (70-110); Magnesium 2.3 mg/dL (1.5-2.4); Potassium 5.4 mmol/L (3.5-5.5); Sodium 140 mmol/L (135-145); T4, Free (Free Thyroxine) 1.37 ng/dL (0.80-1.80); Total Bilirubin 0.4 mg/dL (0.3-1.2); Total Protein 7.3 d/dL (6.2-8.2)
== END | disposition home or self-care (01) ==
LOC: LABWHC1 07:31
PROVIDERS: ATTEND Internal Medicine
DX: E03.9 Hypothyroidism, unspecified (principal); M85.80 Other specified disorders of bone density and structure, unspecified site
CPT/HCPCS: 36415; 80053; 80061; 82306; 83735; 84439; 84443; 85025

== ENCOUNTER → 2023-03-29 | Outpatient (CLI) | payer MEDICARE, OTHER ==
--- NOTE | 2023-03-29 14:27 | US ---
EXAMINATION TYPE: US kidneys/renal and bladder DATE OF EXAM: 03/29/2023 COMPARISON: NONE CLINICAL INDICATION: Female, 83 years old with history of N18.31 CHRONIC KIDNEY DISEASE, STAGE 3A; EXAM MEASUREMENTS: Right Kidney: 9.8 x 4.1 x 4.6 cm Left Kidney: 10.7 x 4.3 x 5.3 cm Right Kidney: 9.8 x 4.1 x 4.6 cm; subcentimeter renal cortical cyst noted upper mid pole Left Kidney: 10.7 x 4.3 x 5.3 cm Bladder: WNL Bilateral Jets seen: YES IMPRESSION: 1. Right renal cortical cysts.
== END | disposition home or self-care (01) ==
LOC: RADUSWWP 13:29
PROVIDERS: ATTEND Internal Medicine
DX: N18.31 Chronic kidney disease, stage 3a (principal); N28.1 Cyst of kidney, acquired
CPT/HCPCS: 76770

== ENCOUNTER → 2024-03-06 | Outpatient (CLI) | payer MEDICARE ==
[2024-03-06 15:10] LABS: Basophils # (A) 0.07 X 10*3/uL (0.00-0.10); Basophils % (A) 0.9 %; Eosinophils # (A) 0.45 X 10*3/uL (0.04-0.35); Eosinophils % (A) 5.7 %; HGB 14.3 g/dL (12.0-15.0); Lymphocytes # (A) 1.61 X 10*3/uL (0.90-5.00); Lymphocytes % (A) 20.4 %; MCH 31.5 pg (27.0-32.0); MCHC 31.8 g/dL (32.0-37.0); MCV 99.1 FL (80.0-97.0); Mean Platelet Volume 9.7 FL (9.5-12.2); Monocytes # (A) 0.68 X 10*3/uL (0.20-1.00); Monocytes % (A) 8.6 %; NRBC Per 100 WBC 0 X 10*3/uL (0.00-0.01); Neutrophils # (A) 5.06 X 10*3/uL (1.80-7.70); Neutrophils % (A) 64.3 %; Platelet Count 293 X 10*3/uL (140-440); RBC 4.54 X 10*6/uL (4.10-5.20); RDW 12.9 % (11.5-14.5); WBC 7.88 X 10*3/uL (4.50-10.00)
[2024-03-06 15:32] LABS: BUN/Creat Ratio 20.22 Ratio (12.00-20.00); Blood Urea Nitrogen 18.2 mg/dL (9.0-27.0); Chloride 102 mmol/L (96-109); Chol/HDL Ratio 2.69 Ratio; Glucose 102 mg/dL (70-110); LDL Cholesterol,Calculated 112.8 mg/dL (0.0-131.0); Magnesium 2.2 mg/dL (1.5-2.4); Potassium 4.7 mmol/L (3.5-5.5); Sodium 139 mmol/L (135-145)
[2024-03-06 15:33] LABS: ALT 17 U/L (8-44); AST 25 U/L (13-35); Albumin 4.1 g/dL (3.8-4.9); Albumin/Globulin Ratio 1.52 Ratio (1.60-3.17); Alkaline Phosphatase 82 U/L (41-126); Calcium 9.1 mg/dL (8.7-10.3); Globulin 2.7 g/dL (1.6-3.3); T4, Free (Free Thyroxine) 1.38 ng/dL (0.80-1.80); Total Bilirubin 0.6 mg/dL (0.3-1.2); Total Protein 6.8 g/dL (6.2-8.2)
== END | disposition home or self-care (01) ==
LOC: LABWHC1 07:59
PROVIDERS: ATTEND Internal Medicine
CPT/HCPCS: 36415; 80053; 80061; 82306; 83735; 83970; 84439; 84443; 85025